=== PATIENT | male | born 1945 ===

== ENCOUNTER 2016-11-20 16:08 | Emergency (ER) | payer MEDICARE, OTHER ==
[2016-11-20 16:08] VITALS: BMI 34.7
[2016-11-20] MEDS ORDERED: Lidocaine 1% Inj (20ml) ONE (16:31)
[2016-11-20 16:39] VITALS: BP 143/73; PULSE 80; RESP 16; TEMP 97.9
--- NOTE | 2016-11-20 16:42 | ED PDOC ---
Arrival/HPI - General Chief Complaint: Finger,Hand,&Wrist Time Seen by Provider: 11/20/16 16:39 Historian: Patient - History of Present Illness Narrative History of Present Illness (Text): 11/20/16 16:41 71 year old male presents to the emergency department with left middle finger paronychia because he cut his fingernail too short. Patient reports he has been on 250 mg Keflex BID since the infection with no relief. No other complaints. Symptom Onset: Gradual Symptom Course: Unchanged Modifying Factors (Text): Keflex provided no relief Associated Symptoms (Text): None Past Medical History - Provider Review Nursing Documentation Reviewed: Yes - Infectious Disease Hx of Infectious Diseases: None - Tetanus Immunization Tetanus Immunization: Unknown - Cardiac Hx Hypertension: Yes - Pulmonary Hx Chronic Obstructive Pulmonary Disease (COPD): Yes - Endocrine/Metabolic Hx Diabetes Mellitus Type 1: Yes - Psychiatric Hx Depression: No Hx Emotional Abuse: No Hx Physical Abuse: No Hx Substance Use: No - Surgical History Hx Amputation: Yes (toe) Hx Cardiac Catheterization: Yes Hx Coronary Stent: Yes Hx Orthopedic Surgery: Yes (right foot) Hx Tonsillectomy: Yes - Suicidal Assessment Feels Threatened In Home Enviroment: No Family/Social History - Physician Review Nursing Documentation Reviewed: Yes Family/Social History: Unknown Family HX Smoking Status: Never Smoked Hx Alcohol Use: No Hx Substance Use: No Hx Substance Use Treatment: No Allergies/Home Meds Allergies/Adverse Reactions: Allergies No Known Allergies Allergy (Verified 11/20/16 16:20) Home Medications: Home Meds Medication Instructions Recorded Confirmed Amlodipine/Valsartan [Exforge 10 1 tab PO DAILY 12/24/13 12/24/13 mg-320 mg] Carvedilol 25 mg PO BID 12/24/13 12/24/13 Clopidogrel Hydrogen Sulfate 75 mg PO DAILY 12/24/13 12/24/13 [Plavix] Insulin Lispro Protamin/Lispro 0 units SC DAILY 12/24/13 12/24/13 [Humalog Mix 50/50 50 U/ml-50 U/ml 10 ml] Rosuvastatin Calcium [Crestor] 10 mg PO DAILY 12/24/13 12/24/13 Cephalexin [cephalexin] 250 mg PO BID 11/20/16 11/20/16 Review of Systems - Physician Review All systems were reviewed & negative as marked: Yes Physical Exam - Physical Exam Narrative Physical Exam (Text): - Review of Systems Constitutional: Normal. absent: Fatigue, Weight Change, Fevers Eyes: Normal ENT: Normal Respiratory: Normal absent: SOB, Cough, Sputum Cardiovascular: Normal absent: Chest pain, Palpitations, Syncope Gastrointestinal: Normal absent: Abdominal pain, Diarrhea, Nausea, Vomiting Genitourinary: Normal. absent: Dysuria, Frequency, Hematuria Musculoskeletal: Normal. absent: Arthralgias, Back Pain, Neck Pain Skin: Left middle finger paronychia Neurological: Normal absent: Focal Weakness Endocrine: Normal Hemo/Lymphatic: Normal Psychiatric: Normal - Physical exam Patient appears age appropriate, speaking full sentences without difficulty - Systems Exam Head: Present: Atraumatic, Normocephalic Pupils: Present: PERRL Extraocular Muscles: Present: EOMI Conjunctiva: Present: Normal Mouth: Present: Moist Mucous Membranes Neck: Present: Normal Range of Motion. No: MIDLINE TENDERNESS, Paraspinal Tenderness Respiratory/Chest: Present: Clear to Auscultation, Good Air Exchange. No: Respiratory Distress, Accessory Muscle Use, Tachypneic Cardiovascular: Present: Regular Rate and Rhythm, Normal S1, S2, Peripheral Pulses Present. No: Murmurs Abdomen: Present: Normal Bowel Sounds, No: Tenderness, Peritoneal Signs, Rebound, Guarding, Distention Back: Present: Normal Inspection. No: Midline Tenderness, Paraspinal Tenderness Upper Extremity: Present: Left middle finger paronychia with some fluctuance, < 25% subungual hematoma. No: Signs or symptoms of tenosynovitis Lower Extremity: Present: Normal Inspection. No: Edema Neurological: Present: GCS=15, Speech Normal, cranial nerves II through XII fully intact with no cerebellar abnormality, neuro-sensory fully intact. No focal neurological deficits. Skin: Present: Warm, Dry, Normal Color. No: Rashes Lymphatic: Present: OX3, NI, NC Psychiatric: Present: Alert, Oriented x 3, Normal Insight, Normal Concentration Vital Signs Reviewed: Yes Vital Signs Temp Pulse Resp BP Pulse Ox 11/20/16 16:37 97.9 F 80 16 143/73 99 Temperature: Afebrile Blood Pressure: Normal Pulse: Regular Respiratory Rate: Normal Appearance: Positive for: Well-Appearing, Non-Toxic, Comfortable Pain Distress: None Mental Status: Positive for: Alert and Oriented X 3 Medical Decision Making ED Course and Treatment: Impression: 71 year old male presents to the emergency department with left middle finger paronychia because he states he cut his fingernail too short. On physical exam, patient has left middle finger paronychia with some fluctuance , <25% subungual hematoma Progress Notes: Incison & Drainage Procedure Note Procedure - Incision and Drainage Attending - Vince Riley Patient positioned appropriately, verbal consent obtained. 5cc lidocaine with/ without epinephrine was used as a local anesthetic. #11 blade scalpal used for single incision. Drainage of pus and blood. Wound packed with iodoform gauze. Procedure tolerated without complications. Wound dressed with sterile guaze and bacitracin. Pt will be dc'd home on bactrum and keflex with outpatient f/u with his PMD for wound check Pt states he understands to return to the ER right away for new or worsening symptoms or for inability to f/u with PMD or specialist as instructed. Patient states that he fully agrees with and understands discharge instructions. States that he agrees with the plan and disposition. Verbalized and repeated discharge instructions and plan. I have given the patient opportunity to ask any additional questions. - Medication Orders Current Medication Orders: Discontinued Medications Lidocaine HCl (Lidocaine 1% (20ml)) Confirm Administered Dose 20 ml .ROUTE .[facility] ONE Stop: 11/20/16 16:32 - Scribe Statement The provider has reviewed the documentation as recorded by the Reece Atkins Provider Scribe Attestation: All medical record entries made by the Geriibraysa were at my direction and personally dictated by me. I have reviewed the chart and agree that the record accurately reflects my personal performance of the history, physical exam, medical decision making, and the department course for this patient. I have also personally directed, reviewed, and agree with the discharge instructions and disposition. Disposition/Present on Arrival - Present on Arrival Any Indicators Present on Arrival: No History of DVT/PE: No History of Uncontrolled Diabetes: No Urinary Catheter: No History of Decub. Ulcer: No History Surgical Site Infection Following: None - Disposition Have Diagnosis and Disposition been Completed?: Yes Diagnosis: Acute paronychia of finger Disposition: HOME/ ROUTINE Disposition Time: 17:05 Patient Plan: Discharge Condition: GOOD Discharge Instructions (ExitCare): Paronychia (ED) Additional Instructions: PLEASE RETURN TO THE EMERGENCY DEPARTMENT FOR NEW OR WORSENING SYMPTOMS. RETURN RIGHT AWAY IF YOU CANNOT FOLLOW UP WITH YOUR PRIMARY CARE DOCTOR, CLINIC, OR SPECIALIST IN 1-2 DAYS. Please follow-up with your primary physician within 48 hours for wound check Keep wound clean and dry Prescriptions: Sulfamethoxazole/Trimethoprim [Bactrim DS 800 mg-160 mg] 1 tab PO Q12 #14 tab Cephalexin [Keflex] 500 mg PO TID #21 capsule
[2016-11-20 17:19] VITALS: O2SAT 98
== END 2016-11-20 17:19 | disposition home or self-care (01) ==
LOC: ED 16:08
DX: L03.012 Cellulitis of left finger (principal); E10.9 Type 1 diabetes mellitus without complications; I10 Essential (primary) hypertension